=== PATIENT | male | born 1960 | race African-American/Black ===

== ENCOUNTER 2020-02-24 13:53 | Inpatient (IN) | payer MEDICARE, MEDICAID ==
[~2020-02-24] VITALS: Ht 185.4 cm; Wt 103.0 kg
[2020-02-24] MEDS ORDERED: SODIUM CHLORIDE 0.9% 1,000 ML IV ONE (14:37)
[2020-02-24] MEDS ORDERED: ASPIRIN 325MG EC TABLET PO ONE (14:45)
[2020-02-24] MEDS ORDERED: HYDRALAZINE 20MG/ML VIAL IV ONE (15:15)
[2020-02-24 15:49] LABS: BASOPHILS % 0.6 % (0.0-2.0); EOSINOPHILS % 2.1 % (0.0-5.0); HEMATOCRIT. 39.4 % (42.0-52.0); HEMOGLOBIN. 13.4 g/dL (14.0-18.0); LYMPHOCYTES % 16.8 % (20.0-50.0); MEAN CORPUSCULAR HEMOGLOBIN 30.4 pg (28.0-32.0); MEAN CORPUSCULAR VOLUME 89.4 fL (80.0-94.0); MEAN PLATELET VOLUME 8.5 fl (7.4-10.4); MONOCYTES % 9.7 % (2.0-8.0); NEUTROPHILS % 70.8 % (40.0-76.0); PLATELET 233 x1000/uL (130-400); RED BLOOD CELL COUNT 4.41 mill/uL (4.7-6.1); RED CELL DISTRIBUTION WIDTH 14.8 % (11.6-14.6)
[2020-02-24 15:52] LABS: CHLORIDE 108 mEq/L (98-107)
[2020-02-24 15:55] LABS: INR 1.2; PARTIAL THROMBOPLASTIN TIME 26.6 sec (23.4-31.0); PROTHROMBIN TIME 12.6 sec (9.6-11.0)
[2020-02-24] MEDS ORDERED: LEVOFLOXACIN 750MG PREMIX 150 ML IV ONE (16:45)
[2020-02-24] MEDS ORDERED: SODIUM CHLORIDE 0.9% 1000ML BAG (SEPSIS BOLUS) IV ONE (17:15)
[2020-02-24 17:19] LABS: CLARITY URINE CLEAR (CLEAR); COLOR URINE YELLOW (YELLOW); KETONES URINE NEGATIVE (NEGATIVE); LEUKOCYTE ESTERASE URINE NEGATIVE (NEGATIVE); NITRITE URINE NEGATIVE (NEGATIVE); OCCULT BLOOD URINE NEGATIVE (NEGATIVE); PROTEIN URINE 2+ (NEGATIVE); SPECIFIC GRAVITY URINE 1.019 (1.005-1.030)
[2020-02-24] MEDS ORDERED: IOHEXOL-350 100 ML BOTTLE ONE (19:06)
[2020-02-24] MEDS: CLONIDINE 0.1MG TABLET PO PRN (21:22)
[2020-02-24] MEDS ORDERED: DOCUSATE SODIUM 100MG CAPSULE PO PRN (23:30)
[2020-02-24] MEDS ORDERED: LABETALOL HCL 20MG/4ML CARPUJECT IV ONE (23:30)
[2020-02-24] MEDS ORDERED: ONDANSETRON HCL 4MG/2ML INJ IV PRN (23:30)
[2020-02-24] MEDS: FUROSEMIDE 40MG/4ML VIAL IV SCH (23:30)
[2020-02-24] MEDS ORDERED: HYDROCODONE/ACETAMINOPHEN 5/325MG TABLET PO PRN (23:30)
[2020-02-24] MEDS ORDERED: ACETAMINOPHEN 325MG TABLET PO PRN (23:30)
[2020-02-24] MEDS ORDERED: IPRATROPIUM/ALBUTEROL 0.5-3(2.5)MG/3ML NEB NEB PRN (23:30)
[2020-02-24] MEDS ORDERED: MAGNESIUM/ALUMINUM HYDROXIDE/SIMETHICONE 30ML UDC PO PRN (23:30)
[2020-02-24] MEDS ORDERED: CLONIDINE 0.1MG TABLET PO PRN (23:30)
[2020-02-24] MEDS ORDERED: ENOXAPARIN 40MG/0.4ML SYR SUBCUT SCH (23:30)
[2020-02-24] MEDS: ASPIRIN 81MG EC TABLET PO SCH (23:45)
[2020-02-25 00:24] LABS: *AMPHETAMINES SCREEN URINE NEGATIVE (NEGATIVE); *BARBITURATES SCREEN URINE NEGATIVE (NEGATIVE); *BENZODIAZEPINES SCREEN URINE NEGATIVE (NEGATIVE); *COCAINE SCREEN URINE NEGATIVE (NEGATIVE)
[2020-02-25 00:25] LABS: CANNABINOID URINE SCREEN PRESUMTIVE POSITIVE (NEGATIVE); METHADONE URINE SCREEN NEGATIVE (NEGATIVE); OPIATES URINE SCREEN NEGATIVE (NEGATIVE); PHENCYCLIDINE URINE SCREEN NEGATIVE (NEGATIVE)
[2020-02-25] MEDS: NIFEDIPINE XL 60MG TAB PO SCH ×2 (00:30→09:00)
[2020-02-25] MEDS: CLONIDINE 0.1MG TABLET PO PRN (05:10)
[2020-02-25] MEDS: CARVEDILOL 6.25 MG TABLET PO SCH ×2 (06:00→14:30)
[2020-02-25] MEDS: FUROSEMIDE 40MG/4ML VIAL IV SCH ×2 (07:15→17:15)
[2020-02-25 07:59] LABS: BASOPHILS % 0.7 % (0.0-2.0); EOSINOPHILS % 1.9 % (0.0-5.0); HEMATOCRIT. 38.8 % (42.0-52.0); HEMOGLOBIN. 13.2 g/dL (14.0-18.0); LYMPHOCYTES % 11.2 % (20.0-50.0); MEAN CORPUSCULAR HEMOGLOBIN 30.6 pg (28.0-32.0); MEAN CORPUSCULAR VOLUME 90.1 fL (80.0-94.0); MONOCYTES % 9.6 % (2.0-8.0); NEUTROPHILS % 76.6 % (40.0-76.0); PLATELET 214 x1000/uL (130-400); RED CELL DISTRIBUTION WIDTH 14.7 % (11.6-14.6)
[2020-02-25 08:05] LABS: CHLORIDE 109 mEq/L (98-107)
[2020-02-25 08:12] LABS: LDL CHOLESTEROL 103 mg/dL (5-100)
[2020-02-25 08:13] LABS: HDL CHOLESTEROL 37 mg/dL (40-59)
[2020-02-25 08:14] LABS: CREATINE KINASE 103 IU/L (39-308)
[2020-02-25 08:17] LABS: CREATINE KINASE MB FRACTION 1.6 ng/mL (0.5-3.6)
[2020-02-25] MEDS: ASPIRIN 81MG EC TABLET PO SCH (09:00)
[2020-02-25 11:25] LABS: HEPATITIS B SURFACE ANTIGEN NEGATIVE
[2020-02-25] MEDS: HYDRALAZINE 20MG/ML VIAL IV PRN ×2 (11:44→19:35)
[2020-02-25 11:55] LABS: HEPATITIS A AB IGM NEGATIVE (NEGATIVE)
[2020-02-25] MEDS: ENOXAPARIN 100MG/ML SYR SUBCUT SCH (14:30)
[2020-02-25] MEDS ORDERED: DILTIAZEM HCL 120MG CAPSULE CD 24HR PO SCH (19:00)
[2020-02-25] MEDS: LOSARTAN POTASSIUM 25 MG TABLET PO SCH (21:00)
[2020-02-25] MEDS ORDERED: DILTIAZEM HCL 5MG/ML 10ML VIAL IV SCH (23:15)
[2020-02-25] MEDS ORDERED: DILTIAZEM 125MG in DEXTROSE 5% WATER 125ML IV PRN (23:15)
[2020-02-25] MEDS ORDERED: DILTIAZEM HCL 5MG/ML 5ML VIAL IV ONE (23:17)
[2020-02-26] MEDS: ENOXAPARIN 100MG/ML SYR SUBCUT SCH (06:00)
[2020-02-26] MEDS: FUROSEMIDE 40MG/4ML VIAL IV SCH ×2 (09:56→17:56)
[2020-02-26 12:14] LABS: CHLORIDE 104 mEq/L (98-107)
[2020-02-26 12:15] LABS: BASOPHILS % 0.5 % (0.0-2.0); EOSINOPHILS % 3.8 % (0.0-5.0); HEMATOCRIT. 41.6 % (42.0-52.0); HEMOGLOBIN. 14.1 g/dL (14.0-18.0); LYMPHOCYTES % 9.7 % (20.0-50.0); MEAN CORPUSCULAR HEMOGLOBIN 30.5 pg (28.0-32.0); MEAN CORPUSCULAR VOLUME 90.3 fL (80.0-94.0); MEAN PLATELET VOLUME 8.4 fl (7.4-10.4); MONOCYTES % 10.3 % (2.0-8.0); NEUTROPHILS % 75.7 % (40.0-76.0); PLATELET 239 x1000/uL (130-400); RED BLOOD CELL COUNT 4.61 mill/uL (4.7-6.1); RED CELL DISTRIBUTION WIDTH 15.1 % (11.6-14.6)
[2020-02-26] MEDS: LOSARTAN POTASSIUM 25 MG TABLET PO SCH (14:18)
[2020-02-26] MEDS: CARVEDILOL 6.25 MG TABLET PO SCH ×2 (14:18→22:04)
[2020-02-26] MEDS: ASPIRIN 81MG EC TABLET PO SCH (14:18)
[2020-02-26] MEDS ORDERED: IPRATROPIUM BROMIDE (0.02%) 0.5MG/2.5ML NEB HHN PRN (15:00)
[2020-02-26 16:40] VITALS: BP 151/72
[2020-02-26 17:45] VITALS: BP_SYST 108; BP_SYST 151; BP_DIAS 41; BP_DIAS 72
[2020-02-26] MEDS ORDERED: PNEUMOCOCCAL 23-VAL P-SAC VAC 0.5 ML IM ONE (18:30)
[2020-02-26] MEDS ORDERED: DEXTROSE 50% WATER 50ML SYRINGE IV PRN (18:30)
[2020-02-26] MEDS: BLOOD SUGAR DIAGNOSTIC STRIP TEST SCH (21:00)
[2020-02-26] MEDS: DILTIAZEM HCL 120MG CAPSULE CD 24HR PO SCH (22:02)
[2020-02-26] MEDS: INSULIN LISPRO 100 UNITS/ML SUBCUT SCH (22:47)
[2020-02-27] VITALS (10 sets, daily range): BP systolic 115–156; BP diastolic 60–96
[2020-02-27] MEDS: FUROSEMIDE 40MG/4ML VIAL IV SCH ×2 (06:07→18:12)
[2020-02-27 06:57] LABS: BASOPHILS % 0.7 % (0.0-2.0); EOSINOPHILS % 6.3 % (0.0-5.0); HEMATOCRIT. 40.4 % (42.0-52.0); HEMOGLOBIN. 13.8 g/dL (14.0-18.0); LYMPHOCYTES % 14.7 % (20.0-50.0); MEAN CORPUSCULAR HEMOGLOBIN 30.5 pg (28.0-32.0); MEAN PLATELET VOLUME 8.5 fl (7.4-10.4); MONOCYTES % 11.1 % (2.0-8.0); NEUTROPHILS % 67.2 % (40.0-76.0); PLATELET 246 x1000/uL (130-400); RED BLOOD CELL COUNT 4.53 mill/uL (4.7-6.1); RED CELL DISTRIBUTION WIDTH 14.9 % (11.6-14.6)
[2020-02-27] MEDS: BLOOD SUGAR DIAGNOSTIC STRIP TEST SCH ×4 (07:33→20:11)
[2020-02-27] MEDS: INSULIN LISPRO 100 UNITS/ML SUBCUT SCH ×4 (08:12→20:10)
[2020-02-27] MEDS: DILTIAZEM HCL 120MG CAPSULE CD 24HR PO SCH ×2 (08:12→20:11)
[2020-02-27] MEDS: ASPIRIN 81MG EC TABLET PO SCH (08:12)
[2020-02-27] MEDS: CARVEDILOL 6.25 MG TABLET PO SCH ×2 (08:13→20:12)
[2020-02-27] MEDS: LOSARTAN POTASSIUM 25 MG TABLET PO SCH (08:13)
[2020-02-27] MEDS ORDERED: REGADENOSON 0.4 MG/5 ML IV SCH (13:00)
[2020-02-27] MEDS: ENOXAPARIN 100MG/ML SYR SUBCUT SCH (18:12)
[2020-02-28 03:35] VITALS: BP 116/94
[2020-02-28] MEDS: FUROSEMIDE 40MG/4ML VIAL IV SCH (06:00)
[2020-02-28] MEDS: ENOXAPARIN 100MG/ML SYR SUBCUT SCH (06:00)
[2020-02-28 06:42] LABS: BASOPHILS % 0.7 % (0.0-2.0); EOSINOPHILS % 6.9 % (0.0-5.0); HEMATOCRIT. 41.1 % (42.0-52.0); LYMPHOCYTES % 21.3 % (20.0-50.0); MEAN CORPUSCULAR HEMOGLOBIN 30.4 pg (28.0-32.0); MEAN CORPUSCULAR VOLUME 89.2 fL (80.0-94.0); MEAN PLATELET VOLUME 8.5 fl (7.4-10.4); MONOCYTES % 12.2 % (2.0-8.0); NEUTROPHILS % 58.9 % (40.0-76.0); PLATELET 249 x1000/uL (130-400); RED BLOOD CELL COUNT 4.61 mill/uL (4.7-6.1)
[2020-02-28] MEDS: BLOOD SUGAR DIAGNOSTIC STRIP TEST SCH ×2 (07:46→12:42)
[2020-02-28] MEDS: INSULIN LISPRO 100 UNITS/ML SUBCUT SCH ×2 (07:47→12:42)
[2020-02-28 08:00] VITALS: BP 123/88
[2020-02-28] MEDS: LOSARTAN POTASSIUM 25 MG TABLET PO SCH (08:09)
[2020-02-28] MEDS: ASPIRIN 81MG EC TABLET PO SCH (08:09)
[2020-02-28] MEDS: CARVEDILOL 6.25 MG TABLET PO SCH (08:09)
[2020-02-28] MEDS: DILTIAZEM HCL 120MG CAPSULE CD 24HR PO SCH (08:12)
[2020-02-28] MEDS ORDERED: REGADENOSON 0.4 MG/5 ML IV ONE (08:41)
[2020-02-28 12:00] VITALS: BP 126/58
[2020-02-28] MEDS ORDERED: DILT120C88 PO (14:21)
[2020-02-28] MEDS ORDERED: LOSA25TA3 PO (14:21)
[2020-02-28] MEDS ORDERED: COR6 PO (14:21)
[2020-02-28] MEDS ORDERED: ASPI-1158 PO (14:21)
[2020-02-28] MEDS ORDERED: RIVA10TA PO (14:21)
[2020-02-28] MEDS ORDERED: FURO40TA5 MT (14:21)
[2020-02-28 14:36] VITALS: BP 133/69
[2020-02-28] MEDS ORDERED: RIVAROXABAN 10 MG TABLET PO SCH (18:00)
== END 2020-02-28 17:00 | disposition home health service (06) | DRG 291 ==
LOC: ER 13:53 → UNDOADMIN 17:09 → MICUSO 17:09 → ENRESERV 19:30 → CANRESERV 19:30 → EDBEDREQTM 20:54 → EDBEDREQ 20:54 → EDBEDREQSVC 20:54 → MICUSO 02-26 10:43 → 5EST 02-26 16:40
PROVIDERS: ADMIT Internal Medicine; ATTEND Internal Medicine
DX: I11.0 Hypertensive heart disease with heart failure (principal); J96.00 Acute respiratory failure, unspecified whether with hypoxia or hypercapnia; I50.21 Acute systolic (congestive) heart failure; N17.9 Acute kidney failure, unspecified; I48.92 Unspecified atrial flutter; I42.9 Cardiomyopathy, unspecified; I48.91 Unspecified atrial fibrillation; I45.10 Unspecified right bundle-branch block; E78.5 Hyperlipidemia, unspecified; E11.9 Type 2 diabetes mellitus without complications; F12.90 Cannabis use, unspecified, uncomplicated; K76.1 Chronic passive congestion of liver; Z20.828 Contact with and (suspected) exposure to other viral communicable diseases; R59.0 Localized enlarged lymph nodes; R74.0 Nonspecific elevation of levels of transaminase and lactic acid dehydrogenase [LDH]; Z79.899 Other long term (current) drug therapy; Z79.82 Long term (current) use of aspirin
CPT/HCPCS: 36415; 71045; 71275; 76770; 78452; 80048; 80053; 80061; 80305; 81003; 82550; 82553; 82962; 83036; 83605; 83735; 83880; 84145; 84443; 84484; 85025; 85379; 86705; 86709; 86803; 87340; 93005; 93017; 93306; 93970; 96365; 99285; A9500; J0360; J1650; J1815; J1940; J1956; J2785; J3490; J7030; Q9967; U0003-CS

== ENCOUNTER → 2020-08-08 | Outpatient (CLI) | payer MEDICARE, MEDICAID ==
[~2020-08-08] MED LIST: ASPI-1158 PO; ASPI325T85 MT; ATOR10TA69 MT; COR6 PO; DILT120C88 PO; FURO40TA5 MT; LOSA25TA3 PO; RIVA10TA PO; SACU1TAB7 MT
[2020-08-08 10:23] LABS: BASOPHILS % 0.4 % (0.0-2.0); EOSINOPHILS % 2.4 % (0.0-5.0); HEMATOCRIT. 46.2 % (42.0-52.0); HEMOGLOBIN. 15.5 g/dL (14.0-18.0); LYMPHOCYTES % 14.7 % (20.0-50.0); MEAN CORPUSCULAR HEMOGLOBIN 30.1 pg (28.0-32.0); MEAN CORPUSCULAR VOLUME 89.9 fL (80.0-94.0); MEAN PLATELET VOLUME 7.8 fl (7.4-10.4); MONOCYTES % 8.2 % (2.0-8.0); NEUTROPHILS % 74.3 % (40.0-76.0); PLATELET 269 x1000/uL (130-400); RED BLOOD CELL COUNT 5.13 mill/uL (4.7-6.1); RED CELL DISTRIBUTION WIDTH 14.1 % (11.6-14.6)
[2020-08-08 10:45] LABS: INR 1.1; PROTHROMBIN TIME 11.9 sec (9.6-11.0)
== END | disposition home or self-care (01) ==
LOC: LAB 09:44
PROVIDERS: ATTEND Internal Medicine Clinical Cardiac Electrophysiology
DX: Z20.828 Contact with and (suspected) exposure to other viral communicable diseases (principal); I11.0 Hypertensive heart disease with heart failure; I48.3 Typical atrial flutter; I50.9 Heart failure, unspecified
CPT/HCPCS: 36415; 80048; 85025; 85610; 85730; C9803; U0003

== ENCOUNTER → 2020-08-11 | Day surgery (SDC) | payer MEDICARE, MEDICAID ==
[~2020-08-11] VITALS: Ht 182.9 cm; Wt 106.6 kg
== END | disposition home or self-care (01) ==
LOC: CCL 08:15
PROVIDERS: ATTEND Internal Medicine Clinical Cardiac Electrophysiology
DX: I48.92 Unspecified atrial flutter (principal); Z79.82 Long term (current) use of aspirin; Z79.899 Other long term (current) drug therapy; Z98.890 Other specified postprocedural states; Z82.49 Family history of ischemic heart disease and other diseases of the circulatory system; Z83.3 Family history of diabetes mellitus
CPT/HCPCS: 82962; 93005